=== PATIENT | female | born 1960 | race Caucasian/White ===

== ENCOUNTER 2024-08-12 15:46 | Emergency (ER) | payer OTHER ==
[~2024-08-12] VITALS: Ht 172.7 cm; Wt 130.6 kg
[2024-08-12] MEDS ORDERED: Albuterol Sulfate 2.5 MG/3 ML VIAL NEB ONE (16:00)
[2024-08-12 16:46] LABS: BASO # 0.1 10*3/uL (0.0-0.1); BASO % 0.9 % (0.0-1.0); EOS % 0.4 % (1.0-4.0); HEMATOCRIT 51.9 % (37.0-47.0); MEAN CELL VOLUME 91.9 fl (81.0-99.0); MEAN CORPUSCULAR HGB 30.1 pg (27.0-31.0); MEAN CORPUSCULAR HGB CONC 32.8 g/dl (33.0-37.0); MEAN PLATELET VOLUME 10.8 fl (9.6-12.3); MONO # 0.6 10*3/uL (0.1-1.0); MONO % 6.6 % (3.0-9.0); NEUT # 6.3 10*3/uL (2.3-7.9); NEUT % 67.3 % (47.0-73.0); PLATELET COUNT AUTOMATED 239 10*3/uL (130-400); RED BLOOD COUNT 5.65 10*6/uL (4.10-5.10); RED CELL DISTRI WIDTH 12.5 % (0-14.5); WHITE BLOOD COUNT 9.3 10*3/uL (4.8-10.8)
[2024-08-12 17:15] LABS: BUN 21 mg/dl (9-23); CHLORIDE 102 mmol/L (98-107); POTASSIUM 3.9 mmol/L (3.4-5.1)
[2024-08-12] MEDS ORDERED: AVPAK AZITHROM250 M1 PO (17:36)
== END 2024-08-12 17:38 | disposition home or self-care (01) ==
LOC: ED 15:46
PROVIDERS: Emergency Medicine
DX: J40 Bronchitis, not specified as acute or chronic (principal); R06.02 Shortness of breath; I10 Essential (primary) hypertension; E78.5 Hyperlipidemia, unspecified